=== PATIENT | male | born 1955 | race Caucasian/White ===

== ENCOUNTER 2018-05-01 10:58 | Day surgery (SDC) | payer OTHER ==
[~2018-05-01] VITALS: Ht 193 cm; Wt 99.8 kg
[2018-05-01] MEDS ORDERED: KETOROLAC 30 MG/ML VIAL ONE (13:06)
[2018-05-01] MEDS ORDERED: LIDOCAINE 2% 100 MG/5 ML UJET TP ONE (13:06)
== END 2018-05-01 13:55 | disposition home or self-care (01) ==
LOC: MDS 10:58 → MMU 10:58 → MDS 13:55
PROVIDERS: ATTEND Internal Medicine Gastroenterology
DX: Z12.11 Encounter for screening for malignant neoplasm of colon (principal); K63.5 Polyp of colon; K64.8 Other hemorrhoids; I10 Essential (primary) hypertension; J44.9 Chronic obstructive pulmonary disease, unspecified; E66.3 Overweight; Z68.26 Body mass index [BMI] 26.0-26.9, adult; Z72.89 Other problems related to lifestyle; Z98.890 Other specified postprocedural states; Z79.899 Other long term (current) drug therapy
CPT/HCPCS: 45385; J1885

== ENCOUNTER 2019-06-15 10:05 | Day surgery (SDC) | payer OTHER ==
[~2019-06-15] VITALS: Ht 193 cm; Wt 88.5 kg
[2019-06-15] MEDS ORDERED: fentaNYL 0.05 MG/ML VIAL ONE (13:11)
[2019-06-15] MEDS ORDERED: MIDAZOLAM 2 MG/2 ML VIAL ONE ×2 (13:12)
[2019-06-15] MEDS ORDERED: LIDOCAINE 2% 100 MG/5 ML UJET TP ONE (13:12)
[2019-06-15] MEDS ORDERED: fentaNYL 0.05 MG/ML VIAL IVP ONE (13:55)
[2019-06-15] MEDS ORDERED: MIDAZOLAM 2 MG/2 ML VIAL IVP ONE (13:55)
== END 2019-06-15 14:25 | disposition home or self-care (01) ==
LOC: MDS 10:05 → MTU 10:05 → MMU 11:58 → MDS 14:25
PROVIDERS: ATTEND Internal Medicine Gastroenterology
DX: Z12.11 Encounter for screening for malignant neoplasm of colon (principal); D12.4 Benign neoplasm of descending colon; K57.30 Diverticulosis of large intestine without perforation or abscess without bleeding; K64.8 Other hemorrhoids; J44.9 Chronic obstructive pulmonary disease, unspecified; I10 Essential (primary) hypertension; E66.3 Overweight; F17.200 Nicotine dependence, unspecified, uncomplicated; Z98.890 Other specified postprocedural states; Z79.899 Other long term (current) drug therapy
CPT/HCPCS: 45385; J2250; J3010